=== PATIENT | male | born 1965 | race Caucasian/White ===

== ENCOUNTER 2016-11-12 19:05 | Emergency (ER) | payer OTHER ==
[~2016-11-12] VITALS: Ht 177.8 cm; Wt 78.0 kg
[~2016-11-12 19:05] MED LIST: CLIN300C97 PO
--- NOTE | 2016-11-12 19:52 | NUR ---
Patient walked in to ER c/o sore throat. He states that he has been taking antibiotics following Left eye surgery and beleives he has developed thrush. To room 4B.
[2016-11-12] MEDS ORDERED: FLUCONAZOLE 100 MG TABLET PO ONE (20:45)
--- NOTE | 2016-11-12 20:53 | NUR ---
Patient does not wish to wait for test results at this time. Patient discharged to home in stable conditon. Written and verbal after care instructions given. Patient verbalizes understanding of instructions.
[2016-11-12] MEDS ORDERED: FLUCONAZOLE 100 MG TABLET ONE (20:55)
[2016-11-12 21:08] LABS: CALCIUM 9.3 mg/dL (8.5-10.1); CREATININE 1.3 mg/dL (0.6-1.3); POTASSIUM 4.2 mmol/L (3.5-5.1)
[2016-11-12 21:14] LABS: BILIRUBIN,TOTAL 0.4 mg/dL (0.2-1.0); TOTAL PROTEIN, SERUM 7.5 g/dL (6.4-8.2)
[2016-11-12 21:20] LABS: BASOPHILS % (AUTO) 0.4 % (0.0-2.0); EOSINOPHILS # (AUTO) 0.2 K/uL (0.0-0.7); EOSINOPHILS % (AUTO) 1.6 % (0.0-7.0); HEMOGLOBIN 16.9 g/dL (14.0-18.0); LYMPHOCYTES # (AUTO) 3.3 K/uL (0.8-4.8); LYMPHOCYTES % (AUTO) 27.6 % (20.5-51.5); MEAN CORPUSCULAR HGB CONC 36 g/dL (32.0-37.0); MEAN CORPUSCULAR VOLUME 88.9 fL (82.0-92.0); MONOCYTES % (AUTO) 8.4 % (0.0-11.0); NEUTROPHILS # (AUTO) 7.6 K/uL (1.8-8.9); PLATELET COUNT (AUTO) 214 K/uL (150-450); RED BLOOD CELL COUNT(AUTO) 5.29 MIL/uL (4.70-6.10); WHITE BLOOD COUNT (AUTO) 12.1 K/uL (4.0-11.2)
== END 2016-11-12 20:54 | disposition home or self-care (01) ==
LOC: ER 19:07
DX: B37.9 Candidiasis, unspecified (principal); J02.9 Acute pharyngitis, unspecified
CPT/HCPCS: 36415; 80053; 85025; 99284; A4663

== ENCOUNTER 2016-11-23 22:43 | Emergency (ER) | payer OTHER ==
[~2016-11-23] VITALS: Ht 177.8 cm; Wt 78.0 kg
[2016-11-23] MEDS: FLUCONAZOLE 100 MG TABLET PO ONE ×2 (23:20→23:25)
[2016-11-23] MEDS ORDERED: FLUCONAZOLE 100 MG TABLET ONE (23:24)
--- NOTE | 2016-11-23 23:24 | NUR ---
Patient discharged to home in stable conditon. Written and verbal after care instructions given. Patient verbalizes understanding of instructions.
== END 2016-11-23 23:33 | disposition home or self-care (01) ==
LOC: ER 22:48
DX: R09.89 Other specified symptoms and signs involving the circulatory and respiratory systems (principal)
CPT/HCPCS: 99283; A4663